=== PATIENT | female | born 1980 | race African-American/Black ===

== ENCOUNTER → 2016-09-04 | Outpatient (CLI) | payer OTHER, MEDICAID ==
[~2016-09-04] MED LIST: RANI150 PO; SYNT137T PO; Z.0.NO CURRENT MEDS
[2016-09-04 12:12] LABS: BLOOD, URINE LARGE (NEG); GLUCOSE,URINE NEG (NEG); KETONE, URINE NEG (NEG); MUCUS URINE FEW /lpf (OCC); NITRITE,URINE NEG (NEG); PH, URINE 5.5 (5.0-8.5); SQUAMOUS EPITHELIAL CELL URINE 13 /hpf (0-5); URINE COLOR YELLOW (YELLW/STRAW)
[2016-09-04 12:14] LABS: AUTOMATED NEUTROPHIL # 2.3 TH/MM3 (1.8-7.7); BASOPHIL % 0.6 % (0.0-2.0); EOSINOPHIL # 0.1 TH/MM3 (0-0.4); EOSINOPHIL % 2.4 % (0.0-4.0); HEMATOCRIT 34.1 % (35.0-46.0); LYMPH % 41.8 % (9.0-44.0); MEAN CELL VOLUME 71.3 FL (80.0-100.0); MEAN CORPUSCULAR HGB CONC 32.3 % (32.0-36.0); MONO % 6.9 % (0.0-8.0); NEUT % 48.3 % (16.0-70.0); PLATELET COUNT 308 TH/MM3 (150-450); RED BLOOD COUNT 4.78 MIL/MM3 (4.00-5.30); WHITE BLOOD COUNT 4.7 TH/MM3 (4.0-11.0)
[2016-09-04 12:18] LABS: HEMO FLAGS AUTO DIFF
[2016-09-04 12:28] LABS: ANION GAP 8 MEQ/L (5-15); AST (GOT) 13 U/L (15-37); BICARBONATE 26.8 MEQ/L (21.0-32.0); BLOOD UREA NITROGEN 14 MG/DL (7-18); CHLORIDE 107 MEQ/L (98-107); GLOMERULAR FILTRATION RATE 117 ML/MIN (>89); GLUCOSE,FASTING 82 MG/DL (74-99); POTASSIUM 3.4 MEQ/L (3.5-5.1); SODIUM (NA) 142 MEQ/L (136-145)
[2016-09-04 12:37] LABS: ALKALINE PHOSPHATASE 53 U/L (45-117); ALT (GPT) 18 U/L (10-53); FREE T4 0.69 NG/DL (0.76-1.46); HDL CHOLESTEROL 61.7 MG/DL (40.0-60.0); LDL CHOLESTEROL 124 MG/DL (0-99); TOTAL BILIRUBIN ADULT 0.4 MG/DL (0.2-1.0)
[2016-09-04 13:06] LABS: OVALOCYTES 1+ (NORMAL); SCAN/DIFF AUTO DIFF CONFIRMED
== END ==
LOC: CLAB 11:34
DX: R53.83 Other fatigue (principal); E78.5 Hyperlipidemia, unspecified; E03.9 Hypothyroidism, unspecified; Z12.11 Encounter for screening for malignant neoplasm of colon
CPT/HCPCS: 36415; 80053; 80061; 81001; 84439; 84443; 85025

== ENCOUNTER → 2016-09-16 | Outpatient (CLI) | payer MEDICAID, OTHER | LOC: CLAB 14:04 | DX: R53.83 Other fatigue (principal); E03.9 Hypothyroidism, unspecified; E78.5 Hyperlipidemia, unspecified; Z12.11 Encounter for screening for malignant neoplasm of colon | CPT/HCPCS: 82272 ==

== ENCOUNTER → 2016-12-24 | Outpatient (CLI) | payer MEDICAID ==
--- NOTE | 2016-12-24 09:06 | RADRPT ---
EXAM DATE/TIME: 12/24/2016 08:14 [facility] COMPARISON: No previous studies available for comparison. INDICATIONS : Right hip pain, no known injury. MEDICAL HISTORY : None. SURGICAL HISTORY : None. ENCOUNTER: Initial ACUITY: 2 months PAIN SCORE: 7/10 LOCATION: Right hip FINDINGS: A two view examination of the right hip was performed. The primary and secondary trabecular pattern of the femoral neck is intact. The hip joint is of normal width without significant sclerosis or bon y hypertrophy. The acetabulum is grossly intact. CONCLUSION: Unremarkable examination of the right hip. Will Campos MD on December 24, 2016 at 9:04 Board Certified Radiologist. This report was verified electronically.
--- NOTE | 2016-12-24 09:40 | RADRPT ---
EXAM DATE/TIME: 12/24/2016 07:50 [facility] COMPARISON: No previous studies available for comparison. INDICATIONS : Radiculopathy. Low back pain radiating into both legs. MEDICAL HISTORY : None. SURGICAL HISTORY : Thyroid. ENCOUNTER: Initial ACUITY: 2 weeks PAIN SCORE: 5/10 LOCATION: back TECHNIQUE: Multiplanar multisequence MRI of the lumbar spine was performed without contrast. FINDINGS: The most caudal appearing lumbar vertebra is numbered as L5. VERTEBRAE: Homogeneous signal. Normal alignment. CONUS: Normal level and configuration. T12-L1: The thecal sac has a normal diameter. No evidence of disc bulge or protrusion. The neural foramina are patent bilaterally. L1-L2: The thecal sac has a normal diameter. No evidence of disc bulge or protrusion. The neural foramina are patent bilaterally. L2-L3: The thecal sac has a normal diameter. No evidence of disc bulge or protrusion. The neural foramina are patent bilaterally. L3-L4: The thecal sac has a normal diameter. No evidence of disc bulge or protrusion. Mild facet joint hype rtrophy and ligamentous laxity results in mild foraminal narrowing. L4-L5: The thecal sac has a normal diameter. No evidence of disc bulge or protrusion. The neural foramina are patent bilaterally. L5-S1: There is loss of disc signal and height at this level. Annular tear is noted. There is a diffuse asym metric disc osteophyte complex to the right as well as facet joint hypertrophy and ligamentous laxity resulting in moderate bilateral foraminal narrowing but no spinal stenosis. CONCLUSION: 1. Diffuse asymmetric disc osteophyte complex to the right at L5-S1 as well as facet joint hypertroph y and ligamentous laxity resulting in moderate bilateral foraminal narrowing but no spinal stenosis. 2. Mild bilateral foraminal narrowing at L4-5. 3. Degenerative disc disease at L5-S1. Yung Pereira MD on December 24, 2016 at 9:33 Board Certified Radiologist. This report was verified electronically.
== END ==
LOC: HRAD 07:10
DX: M51.06 Intervertebral disc disorders with myelopathy, lumbar region (principal)
CPT/HCPCS: 72148; 73502

== ENCOUNTER → 2016-12-27 | Outpatient (CLI) | payer MEDICAID ==
--- NOTE | 2016-12-27 09:44 | RADRPT ---
EXAM DATE/TIME: 12/27/2016 09:24 [facility] COMPARISON: No previous studies available for comparison. INDICATIONS : Left leg pain and swelling. MEDICAL HISTORY : Left leg pain and swelling. SURGICAL HISTORY : Tubal ligation. section. ENCOUNTER: Initial ACUITY: 3 months PAIN SCORE: 6/10 LOCATION: Left leg. TECHNIQUE: Venous ultrasound of the leg was performed from the inguinal ligament to the proximal calf. Real-mauricio e, color Doppler and spectral tracing, compression and augmentation techniques were used. FINDINGS: There is normal compressibility of the deep venous system from the inguinal region to the proximal ca lf. No echogenic clot is seen in the lumen of the common femoral, femoral, popliteal, and posterior tibial veins. There is a normal response of the venous system to proximal and distal augmentation an d respiration. CONCLUSION: Negative exam with no evidence of deep venous thrombosis. Hernán Hyde MD on December 27, 2016 at 9:42 Board Certified Radiologist. This report was verified electronically.
[2016-12-27 10:14] LABS: THYROXINE (T4) 11.5 MCG/DL (4.8-13.9)
[2016-12-30 19:53] LABS: THYROGLOB ABS LESS THAN 1 IU/mL (< OR = 1)
[2016-12-30 23:51] LABS: THYROGLOBULN 3.4 ng/mL (2.8-40.9)
== END ==
LOC: CLAB 08:45
DX: M79.605 Pain in left leg (principal); R22.42 Localized swelling, mass and lump, left lower limb; Z85.850 Personal history of malignant neoplasm of thyroid
CPT/HCPCS: 36415; 84432; 84436; 84443; 84480; 86376; 86800; 93971

== ENCOUNTER → 2017-06-12 | Outpatient (CLI) | payer MEDICAID ==
[2017-06-12 11:55] LABS: AUTOMATED NEUTROPHIL # 3.5 TH/MM3 (1.8-7.7); BASOPHIL % 0.7 % (0.0-2.0); EOSINOPHIL # 0.2 TH/MM3 (0-0.4); EOSINOPHIL % 2.6 % (0.0-4.0); HEMATOCRIT 37.5 % (35.0-46.0); HEMOGLOBIN 12.1 GM/DL (11.6-15.3); LYMPH % 35.9 % (9.0-44.0); LYMPHOCYTE # 2.3 TH/MM3 (1.0-4.8); MEAN CELL VOLUME 73.1 FL (80.0-100.0); MEAN CORPUSCULAR HEMOGLOBIN 23.5 PG (27.0-34.0); MEAN CORPUSCULAR HGB CONC 32.1 % (32.0-36.0); MEAN PLATELET VOLUME 7.2 FL (7.0-11.0); MONO % 6.6 % (0.0-8.0); MONOCYTE # 0.4 TH/MM3 (0-0.9); NEUT % 54.2 % (16.0-70.0); PLATELET COUNT 302 TH/MM3 (150-450); RED BLOOD COUNT 5.14 MIL/MM3 (4.00-5.30); RED CELL DISTRIBUTION WIDTH 14.9 % (11.6-17.2); WHITE BLOOD COUNT 6.4 TH/MM3 (4.0-11.0)
== END ==
LOC: CLAB 11:30
DX: D64.9 Anemia, unspecified (principal)
CPT/HCPCS: 36415; 85025

== ENCOUNTER → 2017-07-15 | Outpatient (CLI) | payer MEDICAID ==
--- NOTE | 2017-07-15 14:08 | RADRPT ---
EXAM DATE/TIME: 07/15/2017 13:38 [facility] COMPARISON: No previous studies available for comparison. INDICATIONS : Chronic sinusistis RADIATION DOSE: 15.74 CTDIvol (mGy) MEDICAL HISTORY : None SURGICAL HISTORY : Tubal ligation. ENCOUNTER: Initial ACUITY: 1 day PAIN SCORE: 0/10 LOCATION: sinuses TECHNIQUE: Volumetric scanning of the paranasal sinuses was performed. Using automated exposure control and adj ustment of the mA and/or kV according to patient size, radiation dose was kept as low as reasonably a chievable to obtain optimal diagnostic quality images. DICOM format image data is available electro nically for review and comparison. FINDINGS: MAXILLARY SINUSES: Normal. No significant mucosal thickening or fluid. Infundibula are patent. No anomalous inferior orbital ethmoid (Max) air cells. ETHMOID SINUSES: Normal. No significant mucosal thickening or fluid. Fovea ethmoidal and lamina papyracea are symmet yong and intact. SPHENOID SINUSES: Normal. No significant mucosal thickening or fluid. Sphenoethmoidal recesses are patent. No bony d ehiscence. FRONTAL SINUSES: Normal. No significant mucosal thickening or fluid. Frontal recesses are patent. No anomalous fron dang air cells. NASAL FOSSA: Normal. No septal perforation or deviation. No dian bullosa or paradoxical turbinates are identifie d. OTHER: Normal. Limited views of the skull base and orbits are unremarkable. CONCLUSION: Clear paranasal sinuses. Onur Hollingsworth Jr., MD on July 15, 2017 at 13:57 Board Certified Radiologist. This report was verified electronically.
== END ==
LOC: HRAD 13:20
DX: J32.9 Chronic sinusitis, unspecified (principal)
CPT/HCPCS: 70486